=== PATIENT | female | born 2000 | race Caucasian/White ===

== ENCOUNTER 2023-08-12 08:40 | Day surgery (SDC) | payer OTHER ==
[~2023-08-12 08:40] MED LIST: LIDOCAINE 1% (10MG/ML) FOR IV START INTRADERMA PRN
[2023-08-12] MEDS: LACTATED RINGERS 1,000 ML IV SCH (09:30)
[2023-08-12 09:56] VITALS: TEMP 98.6
[2023-08-12] MEDS ORDERED: PROPOFOL 10 MG/ML 20 ML VIAL IV ONE (10:15)
[2023-08-12] MEDS ORDERED: LIDOCAINE 1% INJ 10MG/ML (20 ML MDV) ONE (10:15)
--- NOTE | 2023-08-12 10:25 | P.PCN ---
Date of Procedure: 08/12/23 Procedure(s) Performed: BRIEF HISTORY: Patient is a [id number], pleasant, White female scheduled for an upper endoscopy as a part of evaluation of epigastric abdominal pain and heartburn for the last 3 years duration. She is presently on Pantoprazole 40 mg daily and Pepcid at bedtime and has been doing well. She still has breakthrough symptoms symptoms once or twice a month.. PROCEDURE PERFORMED: Esophagogastroduodenoscopy With biopsy. PREOPERATIVE DIAGNOSIS: GERD/epigastric pain IV sedation per anesthesia. PROCEDURE: After informed consent was obtained, the patient was brought into the endoscopy unit. IV sedation was administered by Anesthesia under continuous monitoring. Initially the Olympus GIF-140 video endoscope was inserted into the mouth. Esophagus intubated without any difficulty. It was gradually advanced into the stomach and duodenum and carefully examined. The bulb and the second part of the duodenum appeared normal. Biopsies were done from the duodenum to rule out celiac disease.The scope at this time was withdrawn to the stomach, adequately insufflated with air, and upon careful examination, mucosa of the antrum,Had mild gastritis and biopsies were done from this area. Mucosa of the body, cardia and the fundus appeared normal. The scope was then withdrawn into the esophagus. The GE junction was located at 39 cm from the incisors. The esophagus appeared normal.Biopsies were done from the distal esophagus. There were no erosions or ulcerations seen and the patient tolerated the procedure well. IMPRESSION: 1.Mild antral gastritis 2.No evidence of esophagitis or Jason's esophagus RECOMMENDATIONS: The findings of this examination were discussed with the patient As well as a family. She was advised to follow with the biopsy results. Continue with Current medications and follow antireflux measures
[2023-08-12 10:37] VITALS: RESP 16
[2023-08-12 11:16] VITALS: BP 101/55; PULSE 73
== END 2023-08-12 11:18 | disposition home or self-care (01) ==
LOC: ORWHC2ENDO 08:40
PROVIDERS: ATTEND Internal Medicine Gastroenterology
DX: K29.50 Unspecified chronic gastritis without bleeding (principal); K21.9 Gastro-esophageal reflux disease without esophagitis; Z79.899 Other long term (current) drug therapy
CPT/HCPCS: 81025; 88305; 43239; J2001; J2704